=== PATIENT | male | born 1965 | race Caucasian/White ===

== ENCOUNTER 2020-03-18 05:29 | Outpatient (RCR) | payer BC ==
[~2020-03-18] VITALS: Ht 177 cm; Wt 86.0 kg
== END 2020-03-18 14:23 | disposition home or self-care (01) ==
LOC: PREOP 05:29
PROVIDERS: ATTEND Internal Medicine
DX: Z01.812 Encounter for preprocedural laboratory examination (principal); Z20.828 Contact with and (suspected) exposure to other viral communicable diseases; Z12.11 Encounter for screening for malignant neoplasm of colon; K21.9 Gastro-esophageal reflux disease without esophagitis
CPT/HCPCS: 87635

== ENCOUNTER 2020-03-21 08:00 | Day surgery (SDC) | payer BC ==
--- NOTE | 2020-03-10 13:45 | HISTORY AND PHYSICAL ---
DATE OF SERVICE: COLONOSCOPY HISTORY AND PHYSICAL HISTORY OF PRESENT ILLNESS: The patient is a 54-year-old white male seen for yearly wellness evaluation. He reports that all in all, he has been feeling well and voicing no significant complaints. He has not had any significant recurrence of urticaria. It had been 10 years since his last colonoscopy, at which time, he had no evidence for neoplasia. He is not aware of any known family history for colon cancer. He has noted no bowel habit change. Denies diarrhea, constipation, bright red blood per rectum or melena. He continues to be physically active, maintaining about a 16-pound weight loss from his high level. Denying fatigue or change in exercise tolerance. UPDATED FAMILY HISTORY: Father at the age of 82 from lymphoma. Mother is still living at the age of 91 with dementia that has been slowly progressive. He reports short term memory loss. No behavioral problems. A pelvic fracture from minimal trauma likely indicative of osteoporosis. He has 3 older sisters that are alive and well. No cancer in the family. PHYSICAL EXAMINATION: GENERAL: Reveals a white male, appeared to be in no acute distress. VITAL SIGNS: Blood pressure 110/70. CHEST: Clear. CARDIOVASCULAR: Regular rate and rhythm without murmur, S3 or S4. ABDOMEN: Soft, supple without mass, organomegaly or tenderness. No evidence for abdominal aortic aneurysm was noted to palpation. EXTREMITIES: Reveal no cyanosis, clubbing or edema. SKIN: Evaluation did reveal an actinic keratosis on his left forearm that he underwent cryotherapy for, expectations were discussed. RECTAL: Deferred to the time of colonoscopy. ASSESSMENT AND PLAN: Unremarkable wellness evaluation. The patient was commended for a good exercise habits. He has no history of smoking or significant alcohol intake. He was sent for a screening lipid panel, chemistry panel and PSA. We will see him back for followup in 6 months. Job ID: [id number] DocumentID: [id number] Dictated Date: 02/07/2020 18:01:40 Radiation Therapist Date: 02/07/2020 18:18:31 Dictated By: MD STEPHANY LANG
[2020-03-21] VITALS (15 sets, daily range): BP systolic 113–156; BP diastolic 50–88
[~2020-03-21] VITALS: Ht 177 cm; Wt 86.0 kg
--- OUTSIDE RECORDS SUMMARY | 2020-03-21 07:19 | XMS REPORT ---
Author Author [employer] multicultural services librarian [employer] [facility] [employer] [facility] [employer] Address [address] [place] [address] Care Team Providers Care Microfilm Technician Name Role Phone MURIEL CASTILLO APRN Unavailable Unavailable YOLI VILLALTA, OSVALDO Rob Unavailable Unavailable Unavailable Unavailable Unavailable Unavailable Allergies Allergy Reported Allergen(s) Allergy Type Date of Reaction(s) Care Facility Classificati Onset Provider on Penicillins Penicillins Drug Allergy 03-13-2020 FROM OSVALDO KEATING [facility] Via (antibiotic) CHILDHOOD MD Burton (2 sources) [facility] ([id number]) Encounters Encounter Date Encounter Type Encounter Diagnosis Care Provider Facility Start: Patient encounter OSVALDO KENT MD [facility] Via [facility] 03-18-2020 [facility] End: 03-18-2020 Start: Patient encounter OSVALDO KENT MD [facility] Via [facility] 03-13-2020 [facility] Start: Patient encounter MURIEL CASTILLO [facility] Via [facility] 06-14-[address] [facility] End: 06-15-2016 Encounter for OSVALDO KENT MD [id number] examination Medical Equipment No Information Goals No Information Immunizations No Information Interventions No Information Medications No Information Payers No Information Plan of Treatment No Information Problems Problem Problem Date Last Documented Episodic/Chr Provider Classificati Recorded Date onic on Esophageal Gastro-esophageal reflux disease 03-19-2020 Chroni c OSVALDO KENT disorders without esophagitis (1 source) Immunization Contact with and (suspected) 03-19-2020 Episodic OSVALDO KENT s and exposure to other viral MD screening communicable diseases for infectious disease (1 source) Other lower Snoring 03-07-2020 Episodic MURIEL respiratory JONATHAN LOBO disease (2 sources) Other Encounter for screening for 03-19-2020 Episodic OSVALDO KENT screening malignant neoplasm of colon for suspected conditions (not mental disorders or infectious disease) (1 source) Residual Periodic limb movement disorder 03-07-2020 Chronic MURIEL codes; JONATHAN CHILD SUPPORT SPECIALIST unclassified (2 sources) Procedures No Information Results No Information Social History No Information Vital Signs No Information Functional Status No Information Mental Status No Information Coronavirus Ab Qn (S) 2020-03-18 Note Date & Note Facility Type 03-18-2020 NOT DETECTED (L) JAZMIN S-CoV-2 RT PCR~~The PENDING LOCATION [facility] Coronavirus Ab SARS-CoV-2 (COVID-19) RT-PCR procedure performed at~[facility] ([id number]) Qn (S) Laboratory is a real-time R T-PCR test intended for~the qualitative detection of SARS-CoV-2 specific nuclei c~acid from upper respiratory tract specimens (nasopharyn geal~or oropharyngeal swabs). The performance of this test teran s~not been established for monitoring treatment of SARS-CoV-2~infe ction. This test was developed and its performance~character istics determined by [facility]. This test~was developed fo r use as a part of a response to the public~health emergency declared to address the outbreak of~COVID-19. This test has not been reviewed by the Food and~Drug Administration. The FDA has de termined that such~clearance or approval is not neces megan. This test is used~for clinical purposes. It should not be reg arded as~investigational or for research. This laboratory is~certif ied under the Clinical Laboratory Improvement Act of~1987 (CLI A-88) as qualified to perform high complexity~clinical labora tory testing. A positive (DETECTED) result is~indicative of the presence of SARS-CoV-2 RNA but does not~rule out bacterial infecti on or co-infection with other~viruses. Laboratories within the [place] and its~territories are required to report all positive results to~the appropriate public health authorities. A negative (NOT~DETECTED) result does not definitively rule out S ARS-CoV-2~infection and should be combined with clinical observ ations,~patient history, and epidemiological information when ma ya~clinical decisions.~~Test Performed at:~[facility]~[address]~[place] [address]~ ~ Additional Source Comments This clinical document has been generated using [employer] software that has been certified by the Office of the National Coordinator for Health Information Technology (ONC 15.99.04.3023.Diam.31.00.0.577210) and the National Committee for [place] (NCQA, as an eMeasure certified technology). FOR RECORDS PERTAINING TO PATIENTS WHO ARE OR HAVE BEEN ENROLLED IN A CHEMICAL D EPENDENCY/SUBSTANCE ABUSE PROGRAM, SOME INFORMATION MAY BE OMITTED. This clinica l summary was aggregated from multiple sources. Caution should be exercised in using it in the provision of clinical care. This summary normalizes information from multiple sources, and as a consequence, information in this document may ma terially change the coding, format and clinical context of patient data. In bib tion, data may be omitted in some cases. CLINICAL DECISIONS SHOULD BE BASED ON T HE PRIMARY CLINICAL RECORDS. [email or web address] provides no warranty or guara ntee of the accuracy or completeness of information in this document.The followi ng information is based on time limited clinical information
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
--- NOTE | 2020-03-21 07:44 | Pre-Op Note & Conscious Sedat ---
Pre-Operative Progress Note H&P Reviewed The H&P was reviewed, patient examined and no changes noted. Date H&P Reviewed: Mar 21, 2020 Time H&P Reviewed: 07:44 Conscious Sedation Pre-Proced ASA Score 2 For ASA 3 and 4: Consider anesthesia and medical clearance. Also, for patients with a history of failed moderate sedation consider anesthesia. Airway Lungs Heart ASA score ASA 1: a normal healthy patient ASA 2: a patient with a mild systemic disease (mid diabetes, controlled hypertension, obesity ASA 3: a patient with a severe systemic disease that limits activity (angina, COPD, prior Myocardial infarction) ASA 4: a patient with an incapacitating disease that is a constant threat to life (CHF, renal failure) ASA 5: a moribund patient not expected to survive 24 hrs. (ruptured aneurysm) ASA 6: a declared brain- patient whose organs are being harvested. For emergent operations, add the letter E after the classification Mallampati Classification Grade 2 Sedation Plan Analgesia, Amnesia, Plan communicated to team members, Discussed options with patient/fam, Discussed risks with patient/fam The patient is an appropriate candidate to undergo the planned procedure, sedation, and anesthesia. The patient immediately re-assessed prior to indication. OSVALDO KENT MD Mar 21, 2020 07:44
[2020-03-21] MEDS: MIDAZOLAM 5 MG/5 ML (VERSED) VIAL IV PRN ×5 (07:50→08:22)
[~2020-03-21 08:00] MED LIST: D5 LR IV SOLUTION 1,000 ML IV ONE; D5 LR IV SOLUTION 1,000 ML IV STA; HURRICAINE EXT TUBE (BENZOCAINE) ONE; LIDOCAINE JELLY 2% 6 ML SYRINGE MM PRN; LIDOCAINE JELLY 2% 6 ML SYRINGE ONE; MIDAZOLAM 5 MG/5 ML (VERSED) VIAL ONE; fentaNYL INJECTION 100 MCG/2 ML AMP IVP ONE; fentaNYL INJECTION 100 MCG/2 ML AMP ONE
[2020-03-21] MEDS ORDERED: MIDAZOLAM 5 MG/5 ML (VERSED) VIAL ONE (08:18)
--- NOTE | 2020-03-21 17:19 | OPERATIVE REPORT ---
DATE OF SERVICE: Panendoscopy summary performed for screening colonoscopy and an EGD evaluation for dysphagia and intermittent choking. The patient was placed in the left lateral decubitus position. Prior to undergoing colonoscopy, digital rectal evaluation was performed. Anal sphincter tone was normal and the perianal reflexes intact. The prostate was anodular, nontender to digital inspection. No abnormalities were noted on digital inspection of anal canal or distal rectal vault. The colonoscope was then inserted into the rectum and under direct visualization advanced to the cecum. The cecum was identified by identification of the ileocecal valve and cecal strap. Photographic documentation was obtained. Quality of prep was good. FINDINGS: There was no evidence for internal or external hemorrhoids. The rectum, sigmoid colon, descending colon, transverse colon, ascending colon and cecum were unremarkable. ASSESSMENT: Normal colonoscopy to the cecum including digital rectal evaluation of the anal canal and prostate. The endoscope was inserted into the oral cavity and under direct visualization, esophagus was intubated. The endoscope was passed down the esophagus, stomach and into the second portion of the duodenum. Careful inspection was made as the endoscope was withdrawn. The patient tolerated the procedure well. FINDINGS: The posterior pharynx, arytenoid aperture, true and false vocal folds were unremarkable to visual inspection. The proximal and mid esophagus were unremarkable. There is a minimal amount of erythema noted at the Z-line, which was unremarkable. No evidence to suggest Chavez's change was noted. No evidence for hiatal hernia formation was noted. No evidence for stricturing was noted. Biopsies was obtained from the GE junction and submitted for histopathology. The cardia, fundus, antrum, pylorus, pyloric channel, duodenal bulb and second portion of duodenum were unremarkable. ASSESSMENT: Minimal erythema noted at the Z line was present, otherwise unremarkable upper endoscopy. No evidence for hiatal hernia formation, stricturing or extrinsic compression noted. Job ID: [id number] DocumentID: [id number] Dictated Date: 03/21/2020 12:04:04 Parimutuel Ticket Checker Date: 03/21/2020 17:17:55 Dictated By: OSVALDO KENT MD [facility]
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
--- OUTSIDE RECORDS SUMMARY | 2020-03-21 17:20 | XMS REPORT ---
Author Author Adrenaline Mobility traffic engineering technician [facility] Adrenaline Mobility [facility] [employer] Address [address] [place] [address] Care Team Providers Care Tableman Name Role Phone MURIEL CASTILLO APRN Unavailable Unavailable YOLI VILLALTA, OSVALDO Rob Unavailable Unavailable Unavailable Unavailable Unavailable Unavailable Allergies Allergy Reported Allergen(s) Allergy Type Date of Reaction(s) Care Facility Classificati Onset Provider on Penicillins Penicillins Drug Allergy 03-13-2020 FROM [facility] Via (antibiotic) CHILDHOOD JONATHAN Burton (6 sources) [facility] ([id number]) Encounters Encounter Date Encounter Type Encounter Diagnosis Care Provider Facility Start: Patient encounter OSVALDO KENT MD [facility] Via [facility] 03-21-2020 [facility] End: 03-21-2020 Start: Patient encounter OSVALDO KENT MD [facility] Via [facility] 03-18-2020 [facility] End: 03-18-2020 Start: Patient encounter OSVALDO KENT MD [facility] Via [facility] 03-13-2020 [facility] Start: Patient encounter MURIEL CASTILLO [facility] Via [facility] 06-14-2016 [facility] End: 06-15-2016 Encounter for OSVALDO KENT MD [facility] ([id number] examination Medical Equipment No Information Goals No Information Immunizations No Information Interventions No Information Medications No Information Payers No Information Plan of Treatment No Information Problems Problem Problem Date Last Documented Episodic/Chr Provider Classificati Recorded Date onic on Esophageal Gastro-esophageal reflux disease 03-19-2020 Chroni c OSVALDO KENT disorders without esophagitis (2 sources) Immunization Contact with and (suspected) 03-19-2020 Episodic OSVALDO KENT s and exposure to other viral MD screening communicable diseases for infectious disease (2 sources) Other lower Snoring 03-07-2020 Episodic MURIEL respiratory JONATHAN LOBO disease (3 sources) Other Encounter for screening for 03-19-2020 Chencho KENT screening malignant neoplasm of colon MD for suspected conditions (not mental disorders or infectious disease) (2 sources) Residual Periodic limb movement disorder 03-07-2020 Chronic MURIEL codes; JONATHAN OYSTER CULLER unclassified (3 sources) Procedures No Information Results No Information Social History No Information Vital Signs No Information Functional Status No Information Mental Status No Information Coronavirus Ab Qn (S) 2020-03-18 Note Date & Note Facility Type 03-18-2020 NOT DETECTED (L) JAZMIN S-CoV-2 RT PCR~~The PENDING LOCATION [facility] Coronavirus Ab SARS-CoV-2 (COVID-19) RT-PCR procedure performed at~[facility] ([id number]) Qn (S) Laboratory is a real-time R T-PCR test intended for~the qualitative detection of SARS-CoV-2 specific nuclei c~acid from upper respiratory tract specimens (nasopharyn geal~or oropharyngeal swabs). The performance of this test teran s~not been established for monitoring treatment of SARS-CoV-2~infe ction. This test was developed and its performance~character istics determined by [employer]. This test~was developed fo r use as [...] epidemiological information when ma ya~clinical decisions.~~Test Performed at:~[facility]~[address]~[place] [address]~ ~ Additional Source Comments This clinical document has been generated using [employer] software that has been certified by the Office of the National Coordinator for Health Information Technology (ONC 15.99.04.3023.Diam.31.00.0.134858) and the National Committee for Front Desk Specialist (NCQA, as an eMeasure certified technology). FOR [...] BASED ON T HE PRIMARY CLINICAL RECORDS. [employer] provides no warranty or guara ntee of the accuracy or completeness of information in this document.The followi ng information is based on time limited clinical information
== END 2020-03-21 09:40 | disposition home or self-care (01) ==
LOC: ENDO 08:00
PROVIDERS: ATTEND Internal Medicine
DX: Z12.11 Encounter for screening for malignant neoplasm of colon (principal); K21.0 Gastro-esophageal reflux disease with esophagitis; K22.70 Barrett's esophagus without dysplasia; Z88.0 Allergy status to penicillin
CPT/HCPCS: 88305

== ENCOUNTER → 2022-09-08 | Outpatient (CLI) | payer BC ==
[~2022-09-08] VITALS: Ht 177.8 cm; Wt 90.9 kg
[~2022-09-08] MED LIST changes: -D5 LR IV SOLUTION 1,000 ML IV ONE; -D5 LR IV SOLUTION 1,000 ML IV STA; -HURRICAINE EXT TUBE (BENZOCAINE) ONE; -LIDOCAINE JELLY 2% 6 ML SYRINGE MM PRN; -LIDOCAINE JELLY 2% 6 ML SYRINGE ONE; -MIDAZOLAM 5 MG/5 ML (VERSED) VIAL ONE; +NF-CRES10T PO; -fentaNYL INJECTION 100 MCG/2 ML AMP IVP ONE; -fentaNYL INJECTION 100 MCG/2 ML AMP ONE
== END | disposition home or self-care (01) ==
LOC: PREOP 05:29
PROVIDERS: ATTEND Specialist
DX: Z01.818 Encounter for other preprocedural examination (principal)

== ENCOUNTER 2022-09-13 09:04 | Day surgery (SDC) | payer BC ==
[~2022-09-13] VITALS: Ht 177 cm; Wt 90.9 kg
[2022-09-13] VITALS (11 sets, daily range): BP systolic 130–196; BP diastolic 70–105
[2022-09-13] MEDS ORDERED: LIDOCAINE/EPI 1%-1:100,000 (XYLOCAINE) 30ML ONE (10:00)
[2022-09-13] MEDS ORDERED: BACITRACIN OINTMENT 28 GM TUBE ONE (10:00)
[2022-09-13] MEDS ORDERED: ceFAZolin INJECTION 2,000 MG in NS (IVPB) 50 ML IV ONE (10:15)
[2022-09-13] MEDS ORDERED: ROPIVACAINE 5MG/ML 30ML VIAL ONE (10:25)
[2022-09-13] MEDS ORDERED: SUCCINYLCHOLINE INJ 20 MG/1 ML 10 ML VIAL ONE (10:26)
[2022-09-13] MEDS ORDERED: ONDANSETRON 4 MG/2 ML (SDV) Z0FRAN ONE (10:26)
[2022-09-13] MEDS ORDERED: MIDAZOLAM 2 MG/2 ML (VERSED) VIAL ONE (10:26)
[2022-09-13] MEDS ORDERED: fentaNYL INJ 100 MCG/2 ML AMP ONE (10:26)
[2022-09-13] MEDS ORDERED: proPOfol 200 MG/20 ML (DIPRIVAN) VIAL IV ONE ×2 (10:26→11:01)
[2022-09-13] MEDS ORDERED: SEVOFLURANE (ULTANE) 15 ML INHAL SOLN ONE ×2 (10:26→12:56)
[2022-09-13] MEDS ORDERED: LIDOCAINE PF 2% 5 ML (XYLOCAINE) VIAL ONE (10:26)
[2022-09-13] MEDS: LACTATED RINGERS 1,000 ML IV PRN ×2 (10:28→11:50)
[2022-09-13] MEDS ORDERED: ROCURONIUM 50 MG/5 ML (ZEMURON) VIAL IV ONE (10:29)
--- NOTE | 2022-09-13 10:29 | Progress Note-Pre Operative ---
Pre-Operative Progress Note Date of Available H&P: Sep 13, 2022 Date H&P Reviewed: Sep 13, 2022 Time H&P Reviewed: 09:30 Changes from last HP none Pre-Operative Diagnosis: right submandibular gland sialodenitis with sialolithe NIKKO LOMELI DDS Sep 13, 2022 10:29
[2022-09-13] MEDS ORDERED: HYDROcodone/APAP 7.5MG-325 MG/15 ML (LORTAB) UDC PO PRN (10:30)
[2022-09-13] MEDS ORDERED: PHENYLEPHRINE 0.5% NASAL SPR (NEO-SYNEPHRINE) REG ONE ×2 (10:46→11:22)
[2022-09-13] MEDS ORDERED: HYDROmorphone 2 MG/ML VIAL (DILAUDID) ONE ×2 (11:04→13:49)
[2022-09-13] MEDS ORDERED: KETOROLAC 30 MG/ML VIAL ONE (12:55)
[2022-09-13] MEDS ORDERED: LIDOCAINE/EPI 1%-1:100,000 (XYLOCAINE) 30ML IJ ONE (12:55)
[2022-09-13] MEDS ORDERED: BACITRACIN OINTMENT 28 GM TUBE TOP ONE (12:56)
[2022-09-13] MEDS ORDERED: ROPIVACAINE 5MG/ML 30ML VIAL IJ ONE (13:06)
[2022-09-13] MEDS ORDERED: ONDANSETRON 4 MG/2 ML (SDV) Z0FRAN IVP PRN (13:30)
[2022-09-13] MEDS ORDERED: HYDROmorphone 2 MG/ML VIAL (DILAUDID) IV ONE (13:30)
--- NOTE | 2022-09-13 13:31 | Progress Note-Post Operative ---
Post-Operative Progess Note Surgeon (s)/Canteen Manager (s) Surgeon NIKKO LOMELI DDS Canteen Manager: duane galeas Pre-Operative Diagnosis right submandibular gland sialodenitis with sialolithe Post-Operative Diagnosis same Procedure & Operative Findings Date of Procedure 09/13/22 Procedure Performed/Findings right submandibular salivary gland removal Anesthesia Type geta Estimated Blood Loss Estimated blood loss (mL): 100 ml Specimens/Packing Specimens Removed right sub wendy gland Packing: none NIKKO LOMELI DDS Sep 13, 2022 13:31
--- NOTE | 2022-09-13 13:34 | Anesthesia-General Post-Op ---
General Patient Condition Mental Status/LOC: Same as Preop Cardiovascular: Satisfactory Nausea/Vomiting: Absent Respiratory: Satisfactory Pain: Controlled Complications: Absent Post Op Complications Complications None Follow Up Care/Instructions Patient Instructions None needed. Anesthesia/Patient Condition Patient Condition Patient is doing well, no complaints, stable vital signs, no apparent adverse anesthesia problems. No complications reported per nursing. D/C home per [facility] Criteria: Yes BRIDGER CEBALLOS CRNA Sep 13, 2022 13:34
[2022-09-13] MEDS ORDERED: ceFAZolin INJECTION 1,000 MG in NS (IVPB) 50 ML IV SCH (14:00)
[2022-09-13] MEDS ORDERED: HYDROcodone/APAP 5 MG/325 MG (LORTAB) TAB PO ONE (14:45)
--- NOTE | 2022-09-30 10:39 | OPERATIVE REPORT ---
DATE OF SERVICE: 09/13/2022 SERVICES: surgery aid. SURGEON: Nikko Lomeli DDS THERAPIST: Chelsea Perdue. PREOPERATIVE DIAGNOSES: 1. Right submandibular sialadenitis. 2. Right submandibular sialolith. POSTOPERATIVE DIAGNOSES: 1. Right submandibular sialadenitis. 2. Right submandibular sialolith. PROCEDURES: 1. Removal of right submandibular gland. 2. Removal of right submandibular sialolith. ANESTHESIA: General endotracheal. BLOOD LOSS: 100 mL. COMPLICATIONS: There were no complications. FLUIDS: 1500 mL of crystalloid. Instrument, needle and sponge count were correct x2. HISTORY OF PRESENT ILLNESS AND INDICATION FOR PROCEDURE: The patient is an otherwise healthy 56-year-old white male who presents upon referral from Dr. Boss to my office in which case he has had over the past few weeks periodically having swelling in the right submandibular region. Approximately 10 days ago, he required antibiotics as he had significant trismus, swelling and erythema and tenderness to palpation. Upon exam, he had a draining fistula intraorally in the medial aspect of the mandible, approximately intraorally at the position of the angle of the mandible as well as purulent drainage out of his submandibular duct at the floor of the mouth. Also, he had significant swelling in the submandibular region. I performed a cone beam CT and after evaluating this, he has a rather large sialolith approximately 1 x 1.5 cm medial to his mandible approximately adjacent to where his wisdom tooth would have been. However, it is interesting so much that it is about the level of the inferior border of the mandible. After advising him of this and speaking with him, I said due to the size of this sialolith, its location and his symptoms that we would need to remove his submandibular gland and remove the sialolith. This will be done via extraoral approach. I advised him of the risks versus benefits of the procedure, particularly the risk to the facial nerve, the marginal mandibular branch to be specific as well as any altered sensation to the lingual nerve as the lingual nerve is very close and actually loops around the submandibular duct. He was allowed to ask questions as well as his and after they were answered, he elected to have surgery performed at [facility] and then he was scheduled at the earliest opportune time. DESCRIPTION OF PROCEDURE: The patient was taken to the operating room and placed on the operatory table. Anesthesia was induced via nasotracheal intubation without difficulty. Once this was secured, the surgeon left the room, scrubbed, returned, donned sterile gowns and gloves and then prepped and draped the patient in the usual standard sterile fashion. I had spoken with the anesthesia provider that we would want to make sure he was not paralyzed at the beginning of the case and then I was able to deposit local anesthesia approximately 2 fingerbreadths beneath the inferior border of the mandible on the right side and the subcutaneous plane and then we used a 15 blade to make an approximately 2-inch incision. We then used sharp dissection down through the subcuticular tissue. I was able to identify the platysma, at which case I was able to use a nerve stimulator to divide the platysma muscle sharply and making sure that we did not have any branches of the facial nerve and we did not identify any. Then continuing deep to the platysma muscle, we continued using the nerve stimulator and dividing the superficial layer of the cervical fascia. The submandibular gland had been infected apparently several months as it was edematous, scarred down and approximately twice the normal size. You could feel it using bimanual palpation. After this, I was able to identify the facial vein and this was divided without difficulty and then the retractors were placed deep to the facial vein in that plane and everything was elevated superiorly. After this, we then continued sharp dissection down and we were able to identify the deep layer of the superficial investing fascia, which is also contiguous with the submandibular gland and at this point, we used Allis clamps and then slowly and methodically dissected through the fascia and we were able to identify the gland, which again was distended, dissected around the gland starting from the superficial layer and then going posterior inferiorly and medially. I was able to identify the facial vein and this was ligated and divided without difficulty and then also I was able to notice the sialolith. Then, while retracting with an Allis clamp, I was able to free up the submandibular gland. At this point, I was able to identify the submandibular duct and this was ligated without difficulty and then after this, I was able to identify the lingual nerve. At this point, we excised the connection with the submandibular ganglion with the lingual nerve. This was divided and then we delivered the submandibular gland and the sialolith. We then copiously irrigated with normal saline. I was able to identify the lingual nerve, which was intact. The hypoglossal nerve as well was deep and on the medial side of our dissection. Once again, we then copiously irrigated with normal saline and then closed the wound in layers, first with the deep layer of the superficial cervical fascia, then closed the platysma muscle. This was closed with 4-0 Vicryl as well as a deep layer. We closed the subcuticular tissue with 4-0 chromic gut. These were all interrupted sutures and then lastly, we closed the skin with 6-0 Prolene in a running fashion. We had cannulated the submandibular duct prior to starting the procedure. The lacrimal probe was then removed. We made sure that we do not have any intraoral communication which we did not and then the throat pack was removed. Once he was breathing spontaneously, he was extubated in the operating room and then transported to the recovery room, assessed to have stable vital signs, breathing spontaneously with a pulse ox of 99%. Job ID: [id number] DocumentID: [id number] Dictated Date: 09/30/2022 07:47:34 [employer]as Programmer Analyst Date: 09/30/2022 09:10:00 Dictated By: NIKKO LOMELI DDS
== END 2022-09-13 16:00 | disposition home or self-care (01) ==
LOC: SDC 09:04
PROVIDERS: ATTEND Specialist
DX: K11.23 Chronic sialoadenitis (principal); K11.5 Sialolithiasis
CPT/HCPCS: 87081; 88307

== ENCOUNTER 2023-02-13 05:11 | Emergency (ER) | payer BC ==
[~2023-02-13] VITALS: Ht 177.8 cm; Wt 91.0 kg
--- NOTE | 2023-02-13 05:43 | ED General ---
General Chief Complaint: Dental Problems/Pain Stated Complaint: DENTAL PAIN Nursing Triage Note: Pt presents with c/o R side dental/facial pain that started last week. Pt went to his dentist on tuesday and could not find anything. He continued to have pain and was given antibiotics and told to take tylenol and ibuprofen for the pain. Pain has continued to get worse. Source of Information: Patient, Family Exam Limitations: No Limitations (CRIS WILKINSON MD) History of Present Illness Date Seen by Provider: Feb 13, 2023 Time Seen by Provider: 05:30 Initial Comments Patient is a 57-year-old male who presents to the emergency room with a chief complaint of right jaw pain that seems to radiate down into his neck and upper right shoulder. Patient states it started mid to end of last week. He states that he thought it was dental in origin and went in and saw his dentist on Tuesday afternoon. He states he had x-rays done and examination and no etiology was found for the dental pain. He was started on azithromycin his first dose was around 11:00 yesterday. He has been taking 800 mg of ibuprofen and 650 mg of Tylenol without any relief of symptoms. Nothing seems to make the pain any better or any worse. He denies any hot or cold intolerance. The pain comes in "waves". He states it is throbbing. Previous submandibular gland resection on the right by Dr. Meza remotely. He takes medication for high cholesterol. He is not a smoker. He has never had a stress test. Currently rates the pain at a "7". Appears to be in mild to moderate distress. Timing/Duration: 1 Week Severity: Severe Associated Systoms: Other (right shoulder pain) (CRIS WILKINSON MD) Allergies and Home Medications Allergies Coded Allergies: Penicillins (Verified Allergy, Unknown, FROM CHILDHOOD, 09/08/22) Patient Home Medication List Home Medication List Reviewed: Yes (CRIS WILKINSON MD) Hydrocodone/Acetaminophen (Hydrocodone-Acetamin 5-325 mg) 5 Mg-325 Mg Tablet, 1 TAB PO Q4H PRN for PAIN-MODERATE (5-7) Prescribed by: SINAI JOHANSEN MD on 02/13/23 0708 Ketorolac Tromethamine (Ketorolac Tromethamine) 10 Mg Tablet, 10 MG PO TID Prescribed by: SINAI JOHANSEN MD on 02/13/23 0652 Levofloxacin (Levofloxacin) 500 Mg Tablet, 500 MG PO DAILY Prescribed by: SINAI JOHANSEN MD on 02/13/23 0707 Pseudoephedrine HCl (Sudafed 12 Hour) 120 Mg Tablet.er, 120 MG PO BID Prescribed by: SINAI JOHANSEN MD on 02/13/23 0708 Rosuvastatin Calcium (Crestor) 10 Mg Tablet, 10 MG PO DAILY, (Reported) Entered as Reported by: LAUREL LOU on 09/08/22 1420 Review of Systems Review of Systems Constitutional: see HPI EENTM: other (right facial/jaw pain) Respiratory: no symptoms reported Cardiovascular: no symptoms reported Gastrointestinal: no symptoms reported Genitourinary: no symptoms reported Musculoskeletal: joint pain (right shoulder / right lateral neck pain) Skin: no symptoms reported (CRIS WILKINSON MD) Past Razutjr-Ykovgh-Btygdp Hx Immunizations Up To Date Influenza Vaccine Up-to-Date: Yes; Up-to-Date First/Initial COVID19 Vaccinat: 2020 Second COVID19 Vaccination Fernie: 2020 Third COVID19 Vaccination Date: 2021 (CRSI WILKINSON MD) Seasonal Allergies Seasonal Allergies: No (CRIS WILKINSON MD) Past Medical History Surgeries: Yes Appendectomy Respiratory: No Currently Using CPAP: No Currently Using BIPAP: No Cardiac: Yes High Cholesterol Neurological: No Sexually Transmitted Disease: No HIV/AIDS: No Genitourinary: No Gastrointestinal: No Musculoskeletal: No Endocrine: No HEENT: Yes (sialodenitis right side) Loss of Vision: Denies Hearing Impairment: Denies Cancer: No Psychosocial: No Integumentary: No Blood Disorders: No Adverse Reaction/Blood Tranf: No (N/A) (CRIS WILKINSON MD) Physical Exam Vital Signs Vital Signs - First Documented 02/13/23 05:20 Temp 36.0 Pulse 52 Resp 16 B/P (MAP) 154/90 (111) (SINAI JOHANSEN DO) Vital Signs Capillary Refill : Less Than 3 Seconds (CRIS WILKINSON MD) Height, Weight, BMI Height: '" Weight: lbs. oz. kg; 28.00 BMI Method: General Appearance: WD/WN, Mild Distress (grimacing, rubbing right face and jaw) Eyes: Bilateral Eye Normal Inspection, Bilateral Eye PERRL, Bilateral Eye EOMI HEENT: PERRL/EOMI, Pharynx Normal, TM Abnormal (R) (right TM slightly injected; not distended, no effusion), Other (no percussive dental tenderness; no gingival inflammation, swelling, erythema; normal tongue; normal buccal mucosa; no edema to the cheek; no temporal artery tenderness) Neck: Normal Inspection, Other (post surgical change submandibular on the right) Respiratory: Lungs Clear, Normal Breath Sounds, No Accessory Muscle Use, No Respiratory Distress Cardiovascular: Regular Rate, Rhythm, Normal Peripheral Pulses, Bradycardia (upper 40's low 50's) Gastrointestinal: Non Tender, Soft Extremity: Normal Capillary Refill, Normal Inspection, Normal Range of Motion, No Pedal Edema Neurologic/Psychiatric: Alert, Oriented x3, No Motor/Sensory Deficits, Normal Mood/Affect, pharmacy resident II-XII Norm as Tested Skin: Normal Color, Warm/Dry (CRIS WILKINSON MD) Progress/Results/Core Measures Suspected Sepsis SIRS Temperature: Pulse: 52 Respiratory Rate: 16 Blood Pressure 154 /90 Mean: 111 (CRIS WILKINSON MD) Results/Orders Lab Results Laboratory Tests Test 02/13/23 05:45 Range/Units White Blood Count 7.1 4.3-11.0 10^3/uL Red Blood Count 5.27 4.30-5.52 10^6/uL Hemoglobin 15.9 13.3-17.7 g/dL Hematocrit 46 40-54 % Mean Corpuscular Volume 88 80-99 fL Mean Corpuscular Hemoglobin 30 25-34 pg Mean Corpuscular Hemoglobin Concent 34 32-36 g/dL Red Cell Distribution Width 11.7 10.0-14.5 % Platelet Count 277 130-400 10^3/uL Mean Platelet Volume 10.2 9.0-12.2 fL Immature Granulocyte % (Auto) 0 % Neutrophils (%) (Auto) 53 42-75 % Lymphocytes (%) (Auto) 32 12-44 % Monocytes (%) (Auto) 10 0-12 % Eosinophils (%) (Auto) 5 0-10 % Basophils (%) (Auto) 0 0-10 % Neutrophils # (Auto) 3.7 1.8-7.8 10^3/uL Lymphocytes # (Auto) 2.2 1.0-4.0 10^3/uL Monocytes # (Auto) 0.7 0.0-1.0 10^3/uL Eosinophils # (Auto) 0.3 0.0-0.3 10^3/uL Basophils # (Auto) 0.0 0.0-0.1 10^3/uL Immature Granulocyte # (Auto) 0.0 0.0-0.1 10^3/uL Erythrocyte Sedimentation Rate 2 0-30 MM/HR Prothrombin Time 13.2 12.2-14.7 SEC INR Comment 1.0 0.8-1.4 Activated Partial Thromboplast Time 30 24-35 SEC Sodium Level 139 135-145 MMOL/L Potassium Level 4.5 3.6-5.0 MMOL/L Chloride Level 105 98-107 MMOL/L Carbon Dioxide Level 25 21-32 MMOL/L Anion Gap 9 5-14 MMOL/L Blood Urea Nitrogen 16 7-18 MG/DL Creatinine 0.94 0.60-1.30 MG/DL Estimat Glomerular Filtration Rate 93 BUN/Creatinine Ratio 17 Glucose Level 120 H 70-105 MG/DL Calcium Level 9.8 8.5-10.1 MG/DL Corrected Calcium 9.5 8.5-10.1 MG/DL Magnesium Level 1.9 1.6-2.4 MG/DL Total Bilirubin 0.6 0.1-1.0 MG/DL Aspartate Amino Transf (AST/SGOT) 41 H 5-34 U/L Alanine Aminotransferase (ALT/SGPT) 81 H 0-55 U/L Alkaline Phosphatase 52 40-136 U/L Troponin I < 0.028 <0.028 NG/ML Total Protein 6.9 6.4-8.2 GM/DL Albumin 4.4 3.2-4.5 GM/DL (SINAI JOHANSEN DO) My Orders Orders - SINAI JOHANSEN DO Ketorolac Injection (Toradol Injection) (02/13/23 06:15) (SINAI JOHANSEN DO) Medications Given in ED Current Medications Medications Dose Ordered Sig/Chandrakant Route Start Time Stop Time Status Last Admin Dose Admin Ketorolac Tromethamine 15 mg ONCE ONCE IVP 02/13/23 06:15 02/13/23 06:16 DC 02/13/23 06:17 15 MG (SINAI JOHANSEN DO) Vital Signs/I&O 02/13/23 05:20 Temp 36.0 Pulse 52 Resp 16 B/P (MAP) 154/90 (111) (SINIA JOHANSEN DO) Vital Signs/I&O Capillary Refill : Less Than 3 Seconds (CRIS WILKINSON MD) Blood Pressure Mean: 111 ECG Initial ECG Impression Date: Feb 13, 2023 Initial ECG Impression Time: 05:42 Initial ECG Rate: 54 Initial ECG Rhythm: S.Roe Initial ECG Intervals: Normal Initial ECG Intervals MA 155 QRS 94 QTc 414 Comment prominent T waves; no ectopy; no significant ST elevation or depression (CRIS WILKINSON MD) Departure Communication (Admissions) The patient is hemodynamically stable. Cardiac enzymes are negative. He has symptoms for about a week so I think a single set of cardiac enzymes is sufficient. His EKG is nonischemic. He has no other cardiac risk factors. His pain is significantly improved with Toradol now down to 3/4 out of 10. He is afebrile and nontoxic. His symptoms may be attributable to sinusitis. He is on Zithromax however I think likely a stronger antibiotic trial is in order. I will switch him to Levaquin. Unfortunately this may be related to scarring and nerve issues after his surgery. The Toradol seemed to give him some temporary relief so I will go ahead and prescribe Toradol and hydrocodone as needed. Advised him to follow-up with his maxillofacial surgeon should the Sudafed, Flonase and Levaquin not fix his symptoms. (SINAI JOHANSEN DO) Impression Primary Impression: Right facial pain Disposition: HOME, SELF-CARE Condition: Stable Departure-Patient Inst. Referrals: OSVALDO KENT MD (PCP/Family) Primary Care Physician Patient Instructions: Acute Pain, Adult Add. Discharge Instructions: Take medications as prescribed. Follow-up with your primary doctor for further evaluation and treatment recommendations. Return to the emergency department for any severe concerns. All discharge instructions reviewed with patient and/or family. Voiced understanding. Scripts Pseudoephedrine HCl (Sudafed 12 Hour) 120 Mg Tablet.er 120 MG PO BID for 5 Days, #10 TAB Prov: SINAI JOHANSEN DO 02/13/23 Levofloxacin (Levofloxacin) 500 Mg Tablet 500 MG PO DAILY for 7 Days, #7 TAB Prov: SINAI JOHANSEN DO 02/13/23 Hydrocodone/Acetaminophen (Hydrocodone-Acetamin 5-325 mg) 5 Mg-325 Mg Tablet 1 TAB PO Q4H PRN for PAIN-MODERATE (5-7) for 3 Days, #12 TAB Prov: SINAI JOHANSEN DO 02/13/23 Ketorolac Tromethamine (Ketorolac Tromethamine) 10 Mg Tablet 10 MG PO TID for Pain for 3 Days, #9 TAB Prov: SINAI JOHANSEN DO 02/13/23 CRIS WILKINSON MD Feb 13, 2023 05:43 SINAI JOHANSEN DO Feb 13, 2023 06:52
[2023-02-13] MEDS ORDERED: ASPIRIN 81 MG CHEW (CHILDREN'S ASA) ONE (05:50)
[2023-02-13 05:55] LABS: BASOPHILS % (AUTO) 0 % (0-10); EOSINOPHILS # (AUTO) 0.3 10^3/uL (0.0-0.3); EOSINOPHILS % (AUTO) 5 % (0-10); HEMATOCRIT 46 % (40-54); HEMOGLOBIN 15.9 g/dL (13.3-17.7); LYMPHOCYTES # (AUTO) 2.2 10^3/uL (1.0-4.0); LYMPHOCYTES % (AUTO) 32 % (12-44); MEAN CORPUSCULAR HEMOGLOBIN 30 pg (25-34); MEAN CORPUSCULAR HGB CONC 34 g/dL (32-36); MEAN CORPUSCULAR VOLUME 88 fL (80-99); MEAN PLATELET VOLUME 10.2 fL (9.0-12.2); MONOCYTES # (AUTO) 0.7 10^3/uL (0.0-1.0); MONOCYTES % (AUTO) 10 % (0-12); NEUTROPHILS # (AUTO) 3.7 10^3/uL (1.8-7.8); NEUTROPHILS % (AUTO) 53 % (42-75); PLATELET COUNT 277 10^3/uL (130-400); WHITE BLOOD COUNT 7.1 10^3/uL (4.3-11.0)
[2023-02-13 06:15] LABS: PROTHROMBIN TIME PATIENT 13.2 SEC (12.2-14.7)
[2023-02-13] MEDS ORDERED: KETOROLAC 15 MG/ML VIAL IVP ONE (06:15)
[2023-02-13 06:16] LABS: ALBUMIN 4.4 GM/DL (3.2-4.5); CHLORIDE 105 MMOL/L (98-107); POTASSIUM 4.5 MMOL/L (3.6-5.0); SODIUM 139 MMOL/L (135-145)
[2023-02-13 06:17] LABS: CALCIUM 9.8 MG/DL (8.5-10.1)
[2023-02-13 06:19] LABS: GLUCOSE 120 MG/DL (70-105); TOTAL PROTEIN 6.9 GM/DL (6.4-8.2)
[2023-02-13 06:20] LABS: CARBON DIOXIDE 25 MMOL/L (21-32)
[2023-02-13 06:22] LABS: ALKALINE PHOSPHATASE 52 U/L (40-136); CREATININE SERUM 0.94 MG/DL (0.60-1.30); GFR ESTIMATED 93
[2023-02-13 06:23] LABS: BUN/CREATININE RATIO 17
[2023-02-13 06:25] LABS: ALANINE AMINOTRANSFERASE 81 U/L (0-55); MAGNESIUM 1.9 MG/DL (1.6-2.4)
[2023-02-13 06:49] LABS: ERYTHROCYTE SEDIMENTATION RATE 2 MM/HR (0-30)
[2023-02-13] MEDS ORDERED: KETO10TA PO ×2 (06:52→07:22)
--- NOTE | 2023-02-13 06:53 | Diagnostic Imaging Report ---
PATIENT HISTORY: Chest pain. TECHNIQUE: Single frontal view of the chest. COMPARISON: None FINDINGS: The lung volumes are normal. No focal consolidation is seen. No large pleural effusion or pneumothorax is seen. The cardiomediastinal silhouette is normal in size and contour. No acute osseous abnormality is seen. IMPRESSION: No acute pulmonary abnormality seen. Dictated by: Dictated on workstation # [id number]
[2023-02-13 06:59] LABS: BILIRUBIN,TOTAL 0.6 MG/DL (0.1-1.0)
[2023-02-13] MEDS ORDERED: ACHD5005 PO ×2 (07:07→07:22)
[2023-02-13] MEDS ORDERED: LEVO-55 PO ×2 (07:07→07:22)
[2023-02-13] MEDS ORDERED: PSEU120T17 PO ×2 (07:07→07:22)
[2023-02-13 07:25] VITALS: BP 134/97
[2023-02-13] MEDS ORDERED: ASPIRIN 81 MG CHEW (CHILDREN'S ASA) PO SCH (09:00)
[2023-02-14 06:35] LABS: TRIGLYCERIDES 181 MG/DL (<150); VLDL CHOLESTEROL 36 MG/DL (5-40)
[2023-02-14 06:40] LABS: CHOLESTEROL 148 MG/DL (< 200)
[2023-02-14 06:41] LABS: HDL CHOLESTEROL 32 MG/DL (40-60)
== END 2023-02-13 07:25 | disposition home or self-care (01) ==
LOC: EDUNIT# 05:11 → ER 05:14
DX: R51.9 Headache, unspecified (principal); E78.00 Pure hypercholesterolemia, unspecified; Z88.0 Allergy status to penicillin
CPT/HCPCS: 36415; 71045; 80053; 80061; 83735; 84484; 85025; 85610; 85652; 85730; 93005